=== PATIENT | male | born 1945 | race Caucasian/White ===

== ENCOUNTER 2017-04-30 20:06 | Emergency (ER) | payer BC ==
[~2017-04-30] VITALS: Ht 180.3 cm; Wt 95.3 kg
--- NOTE | ~2017-04-30 | EKG ---
[place] [address] [facility] [place] [address] ELECTROCARDIOGRAM REPORT Name: WISAM BEE Room #: DEP DEMETRIUS Dior#: [id number] Admission: 04/30/17 Attend Phys: Discharge: 04/30/17 Date of : 45 Report #: [id number] THIS REPORT FOR: //name// [facility] ED Test Date: 2017-04-30 Test Time: 20:11:28 Pat Name: WISAM BEE Department: Room: Gender: M Health Information [employer]agers: [id number] JUVENTINO : 1945 Requested By: Romi Harvey Order Number: [id number] MD: Kapil Valera Measurements Intervals [place] Rate: 60 P: OK: 280 QRS: -20 QRSD: 104 T: 43 QT: 491 QTc: 491 Interpretive Statements Atrial-paced rhythm Borderline left axis deviation Borderline prolonged QT interval No previous ECG available for comparison Electronically Signed On 05-01-2017 8:03:15 CDT by Kapil Valera [email or web address] <ELECTRONICALLY SIGNED> By: Kapil Valera MD, [facility] 05/01/17 0803 10 10 Kapil Valera MD, FACC /EPI
[2017-04-30 20:24] LABS: HEMATOCRIT 39.3 % (42.0-52.0); HEMOGLOBIN 13.2 gm/dL (14.0-18.0); MCHC 33.5 g/dL (28.0-37.0)
[2017-04-30 20:25] LABS: MCH 34.3 pg (26.0-34.0); MCV 102.5 fL (80.0-100.0); PLATELET COUNT 187 thou/uL (150-400); RBC 3.83 mil/uL (4.50-6.00)
[2017-04-30 20:31] LABS: MANUAL DIFF YES
[2017-04-30 20:32] LABS: CALCIUM 8.5 mg/dL (8.5-10.1); CREATININE 1.7 mg/dL (0.7-1.3)
[2017-04-30 20:37] LABS: INR 1.2; PROTIME 12.5 Seconds (9.3-11.4); WBC 46.4 thou/uL (4.0-11.0)
[2017-04-30 20:58] LABS: ABSOLUTE NEUTROPHILS 5.6 thou/uL (1.4-8.2); ATYPICAL LYMPHS 1 %; TOTAL CELL COUNT 100
[2017-04-30 22:05] VITALS: BP 104/59
== END 2017-04-30 22:17 | disposition home or self-care (01) ==
LOC: ER 20:06
PROVIDERS: Emergency Medicine
DX: I95.9 Hypotension, unspecified (principal); N17.9 Acute kidney failure, unspecified; E86.0 Dehydration; I25.2 Old myocardial infarction; Z95.0 Presence of cardiac pacemaker; Z95.5 Presence of coronary angioplasty implant and graft; Z88.6 Allergy status to analgesic agent; Z88.5 Allergy status to narcotic agent